=== PATIENT | male | born 1960 ===

== ENCOUNTER 2022-05-25 08:30 | Day surgery (SDC) | payer OTHER ==
[~2022-05-25] VITALS: Ht 172.7 cm; Wt 86.2 kg
[~2022-05-25 08:30] MED LIST: CLONAZEPAM2 MG; DETROL LA4 MG; DETROL LA4 MG PO; ELAVIL PO; MELOXICAM15 MG PO; SEROQUEL50 MG; VASOTEC10 MG
[2022-05-25] MEDS ORDERED: PERCOCET 5-3251 EACH PO (15:51)
== END 2022-05-25 18:05 | disposition home or self-care (01) ==
LOC: CIR.AMB 08:30
PROVIDERS: ATTEND Surgery
DX: L98.0 Pyogenic granuloma (principal); K64.8 Other hemorrhoids; Z20.822 Contact with and (suspected) exposure to COVID-19; I10 Essential (primary) hypertension